=== PATIENT | male | born 1995 | race Caucasian/White ===

== ENCOUNTER 2016-10-07 02:25 | Emergency (ER) | payer BC ==
--- NOTE | ~2016-10-07 | ER ---
PATIENT'S NAME: [facility] AGE: 21 Y [address] ROOM: [place] [id number] LOCATION: ED ADMIT DATE: 10/07/2016 ER/Outpatient Report DISCHARGE DATE: 10/07/2016 FAMILY PHYSICIAN: Temo Mosher MD ATTENDING PHYSICIAN: Ashleigh Ferrari HISTORY OF PRESENT ILLNESS: A 21-year-old male, right-hand dominant, who presented today with right shoulder pain that started half an hour ago. The patient states that he was play-fighting with his roommate, they were both intoxicated, and then he felt like spasms on his anterior shoulder at this time. He has not taken anything for pain. He denies any numbness or tingling. No other complaints. He is able to range his arm, but he says he feels like intense spasms in his anterior shoulder. No swelling. He does not have any numbness or tingling. PAST MEDICAL HISTORY: None. SURGICAL HISTORY: [place] teeth removal. SOCIAL HISTORY: He does not smoke or use any drugs. He does drink alcohol, and he had been drinking tonight. MEDICATIONS: None. ALLERGIES: NONE. REVIEW OF SYSTEMS: Reviewed by me and were negative with the exception of those discussed in HPI. PHYSICAL EXAMINATION: VITAL SIGNS: The patient is 6 feet tall and he is 93.7 kilos. Blood pressure was 166/81, heart rate was 103, respiratory rate was 16, temperature was 98.5, and sats are 99% on room air. GENERAL: The patient is intoxicated, but he did walk into the ER without too much difficulty. He is not writhing in pain. He looks pretty comfortable. CARDIAC: His heart rate is regular rate and rhythm. PULMONARY: His lungs sounds are clear. ABDOMEN: Soft and nontender. EXTREMITIES: He is able to touch his left shoulder with that arm. It does not appear dislocated. There is no bulge in the back at all. He has max PATIENT'S NAME: [facility]EN [facility] AGE: 21 Y [address] ROOM: [place] [id number] LOCATION: [facility] ADMIT DATE: 10/07/2016 ER/Outpatient Report DISCHARGE DATE: 10/07/2016 FAMILY PHYSICIAN: Temo Mosher MD ATTENDING PHYSICIAN: Ashleigh Ferrari tenderness at the glenohumeral joint, anterior shoulder. He was able to do the empty can sign and listed against resistance. He is also able to put his whole hand behind his back and push against my hand against resistance. So, less likely to be a rotator cuff tear. EMERGENCY ROOM COURSE: We did an x-ray. On my read, I do not see anything wrong with his shoulder or clavicle. I discussed with him that we will be giving him ibuprofen here. I feel uncomfortable giving him anything else as he is intoxicated. I will write him a script for Flexeril. He should follow up with his doctor as needed. IMPRESSION: Right shoulder injury. ASHLEIGH FERRARI MD CAW/modl /[id number] d: 10/07/16 0640 t: 10/10/16 0028, OUTPATIENT REPORT
== END 2016-10-07 03:00 | disposition disaster alternative care site (69) ==
LOC: GMED 02:25
DX: S49.91XA Unspecified injury of right shoulder and upper arm, initial encounter (principal); Y04.0XXA Assault by unarmed brawl or fight, initial encounter